=== PATIENT | female | born 1985 | race Two or more races ===

== ENCOUNTER 2018-12-05 09:29 | Outpatient (CLI) | payer OTHER | END 2018-12-05 09:38 | disposition home or self-care (01) | LOC: RAD 09:29 | DX: E88.1 Lipodystrophy, not elsewhere classified (principal) ==

== ENCOUNTER → 2022-06-10 | Outpatient (CLI) | payer OTHER | END | disposition home or self-care (01) | LOC: RAD 12:56 | PROVIDERS: ATTEND Physical Medicine & Rehabilitation | DX: M54.59 Other low back pain (principal); M25.551 Pain in right hip ==

== ENCOUNTER 2025-01-16 08:54 | Outpatient (CLI) | payer OTHER | END 2025-01-16 08:57 | disposition home or self-care (01) | LOC: RAD 08:54 | PROVIDERS: ATTEND Plastic Surgery | DX: R06.02 Shortness of breath (principal) ==